=== PATIENT | male | born 1960 | race African-American/Black ===

== ENCOUNTER 2018-05-01 06:14 | Day surgery (SDC) | payer MEDICARE, BC ==
[~2018-05-01] VITALS: Ht 185.4 cm; Wt 147.1 kg
--- NOTE | ~2018-05-01 | OP ---
PATIENT NAME: LITZY JONES MEDICAL RECORD: [id number] :60 LOCATION:[facility] ADMISSION DATE: SURGEON: LAZARO PUENTE MD DATE OF OPERATION: 05/01/2018 PREOPERATIVE DIAGNOSES: 1. End-stage renal disease, on chronic hemodialysis. 2. Morbid obesity. POSTOPERATIVE DIAGNOSES: 1. End-stage renal disease, on chronic hemodialysis. 2. Morbid obesity. OPERATION PERFORMED: Laparoscopic implantation of peritoneal dialysis catheter with subcutaneous extension. SURGEON: Lazaro Puente MD ANESTHESIA: General endotracheal per [facility] REFERRING PHYSICIAN: Dr. Judd of [facility]. PREOPERATIVE NOTE: Litzy Jones is a 57-year-old morbidly obese male with end-stage renal disease, on chronic hemodialysis. He dialyzes in [place], [place] 3 days a week. His primary vamp wetter is Dr. Judd. He would like to do peritoneal dialysis and is brought to the hospital today as an outpatient for surgery to implant a catheter. Under general endotracheal anesthesia, in supine position, the patient's abdomen was prepped and draped in a sterile manner and a small incision was made in the left upper quadrant. A 5-mm port with 5-mm 0-degree laparoscope was inserted. The patient had extensive intraperitoneal fat but no significant amount of omentum in midabdomen or pelvis. There were some adhesions to the lower anterior abdominal wall but none that required adhesiolysis. An additional 5-mm port was placed in the left lower quadrant to introduce instruments for manipulation. I then measured with the dialysis catheter itself from the symphysis pubis up on to the anterior abdominal wall to the right of the midline. I made a vertical incision there and exposed the anterior rectus sheath. I used a Cook needle to beasley the anterior abdominal wall and I tried to keep the needle in the rectus sheath for as long segment as possible. I then advanced a guidewire and then a peel-away introducer dilator. The coiled catheter was then rinsed in saline and then inserted through the peel-away sheath and the sheath was removed. The catheter was positioned such that the coiled portion is at the level of the symphysis pubis and the marker line is on the anterior aspect of the catheter. The Dacron felt cuff was buried in the substance of the rectus muscle and a pursestring suture of #0 Vicryl placed there. I then made another incision to the right of the midline, in the right upper quadrant, and exposed the underlying anterior rectus sheath. I made a tunnel then between the 2 incisions just anterior to the fascia. I measured the length of catheter within the wound and found it to be 6 cm. I measured the length of the tunnel between the 2 incisions and this was approximately 18 cm. The first catheter was then shortened and a titanium coupling placed in the end of it and held in place with 2-0 Prolene tie. The second catheter was then rinsed with saline, measured, and shortened appropriately. It was then passed through the subcutaneous tunnel and attached to the opposite end of the titanium OPERATIVE REPORT [id number] LITZY JONES connector. Another Prolene tie was placed and the catheter then pulled back up snuggly into the upper abdomen, where the fit was precise. The end of the catheter with the Dacron felt cuff was then placed in a curving incision, which was angled downward when it exited through the skin. The Dacron felt cuff was at least 2 cm above this in the subcutaneous tissues. The catheter was accessed, flushed with saline, and then aspirated. Free return of fluid was demonstrated. The catheter was then filled with heparin lock solution, clamped, and capped. The catheter position was again examined with the laparoscope and everything looked great. There were definitely no inguinal, incisional, or other hernias seen. The other laparoscopic instruments were removed. The incision sites were then all infiltrated with 0.25% Marcaine without epinephrine and the wounds were closed with interrupted inverted 3-0 Vicryl and ashley. Sterile dressings were applied. The catheter at the exit site was dressed with a Biopatch and Tegaderm and then the catheter was coiled and covered with a Medipore-type dressing. The patient, at this point, was awakened and taken to the recovery room. Blood loss during the operation was about 5 cc, none replaced. All sponges, instruments, and needles were accounted for. No drain was used. I will plan for Mr. Jones to go home today. He will need to see the [facility] Peritoneal Dialysis nurse specialist next week to have the catheter flushed for the first time and I have asked that she change all of the surgical wound dressings. I will see Mr. Jones back in my office in about 2 weeks and I will plan on removing his ashley at that time. Meanwhile, he is discharged to home with a prescription for Rice 5/325, #20. Also, he is instructed to wear a compression belt to help him cough and deep breathe and to help reduce his postop pain and discomfort. He will resume his usual dialysis schedule medications and diet and call if he has any problems or concerns prior to his appointment time. TRANSINT:[id number] Voice Confirmation ID: [id number] DOCUMENT ID: [id number] LAZARO PUENTE MD at 1451 CC: [id number] DICTATION DATE: 05/01/18 1329 [facility] DIRECTOR: 05/01/18 1408 [facility] [place] 05/01/18 [place] [id number] [place] [id number]
[2018-05-01 06:33] LABS: BASOPHILS 0.5 % (0-2); HEMATOCRIT 37.6 % (42.0-54.0); HEMOGLOBIN 11.9 g/dL (13.5-17.5); IMMATURE GRANULOCYTES 0.3 % (0-5); LYMPHOCYTES 24.2 % (15-50); MCH 31.2 pg (26.0-34.0); MCHC 31.6 g/dL (31.0-37.0); MCV 98.4 fL (80.0-100.0); MEAN PLATELET VOLUME 9.5 fL (7.4-10.4); MONOCYTES 9.9 % (2-11); NEUTROPHILS 60.1 % (40-80); PLATELET COUNT 218 10x3/uL (130-400); RBC 3.82 10x6/uL (4.20-6.10); RDW 14.1 % (11.5-14.5)
[2018-05-01 06:39] LABS: INR 0.99 (0.85-1.17); PROTIME 12.7 SECONDS (11.6-15.0)
[2018-05-01 06:40] LABS: APTT 37.3 SECONDS (22.8-39.4)
[2018-05-01 06:43] LABS: ANION GAP 14.6 mmol/L (8-16); CALCIUM 8.7 mg/dL (8.5-10.1); POTASSIUM - SERUM 4.6 mmol/L (3.5-5.1)
[2018-05-01 08:39] VITALS: Ht 185.4 cm; Wt 147.1 kg
[2018-05-01] MEDS ORDERED: METOPROLOL PO (08:54)
[2018-05-01] MEDS ORDERED: SENSIPAR30 MG PO (08:55)
[2018-05-01] MEDS ORDERED: COZAAR100 MG PO (08:55)
[2018-05-01] MEDS ORDERED: PROTONIX20 MG PO (08:55)
[2018-05-01] MEDS ORDERED: NEPHRO-VITE RX1 TAB PO ×2 (08:57→08:58)
[2018-05-01] MEDS ORDERED: BINDER PO (09:00)
== END 2018-05-01 15:50 | disposition home or self-care (01) ==
LOC: D.OPS 06:14
PROVIDERS: Surgery
DX: N18.6 End stage renal disease (principal); Z99.2 Dependence on renal dialysis; E66.01 Morbid (severe) obesity due to excess calories; Z68.41 Body mass index [BMI] 40.0-44.9, adult; Z01.812 Encounter for preprocedural laboratory examination